=== PATIENT | female | born 1970 | race Caucasian/White ===

== ENCOUNTER → 2017-03-07 | Outpatient (CLI) | payer BC ==
--- NOTE | ~2017-03-07 | MR32 ---
[facility] A Service of [facility] RADIOLOGY TEXT RESULTS PATIENT: JENNIE MILLER LOCATION: [facility] : 70 UNIT #: [id number] AGE: [address]: WALLACE AHMADI SEX: F ORDER DR: [id number] [address] [address] [id number] O MR#: [id number] Acc #: [id number] NAME: JENNIE MILLER : 1970 SEX: F STUDY DATE/TIME: 03/07/2017 14:22 UNIT: [facility] ROOM: STUDY DESCRIPTION: MR Cervical Wo Contrast Attending Physician: Wallace Ahmadi Aprn Referring Physician: Wallace Ahmadi Aprn Ordering Physician: Wallace Ahmadi Aprn MRI CENTER REPORT This report is preliminary unless electronic signature is present. EXAM Cervical MRI HISTORY Neck pain for the past 10 years radiating to the base of the skull. Posterior neck pain with limited range of motion. Pain is worse toward the left. TECHNIQUE Multiplanar imaging cervical spine was performed with short and long TR. FINDINGS Alignment is satisfactory. At C3-C4, there is mild degenerative disc disease with small osteophytes extending to the uncovertebral joints causing mild bilateral foraminal stenosis. At C4-C5, there is a small right-sided uncovertebral joint osteophyte with mild right foraminal narrowing. At C5-C6, the disc is narrowed. There is broad-based posterior disc bulging and osteophyte formation. Central stenosis and foraminal narrowing is mild bilaterally. At C6-C7, there is a small left-sided uncovertebral joint osteophyte. There is only mild foraminal narrowing. At C7-T1, the canal and foramina are widely patent bilaterally. The cervical cord is normal in size and signal. There is no evidence of marrow edema. No paraspinous masses are seen. [facility] A Service [facility] RADIOLOGY TEXT RESULTS PATIENT: JENNIE MILLER LOCATION: [facility] : 70 UNIT #: [id number] AGE: [address]: WALLACE AHMADI SEX: F ORDER DR: IMPRESSION Generally mild degenerative disc disease throughout the cervical spine as described above level by level. Degenerative changes are most prominent at C5-C6 where there is mild central stenosis and mild bilateral foraminal stenosis. No discrete cervical disc herniation is seen. No evidence of cord compression or cord lesion. Dictated by... Antolin Hall M.D. THIS IS AN ELECTRONICALLY VERIFIED REPORT Antolin Hall M.D. at 03/11/2017 7:35 AM RLF/merrick TD: 03/07/2017 20:46 JOB #: [id number] MRI CENTER REPORT Page 1 of 1
== END | disposition home or self-care (01) ==
LOC: SMRI 14:08
DX: M54.2 Cervicalgia (principal); M25.78 Osteophyte, vertebrae; G89.29 Other chronic pain
CPT/HCPCS: 72141